=== PATIENT | female | born 1950 | race Caucasian/White ===

== ENCOUNTER 2023-10-22 14:41 | Emergency (ER) | payer MEDICARE, BC, SELFPAY ==
[2023-10-22 14:41] VITALS: BP 156/94; PULSE 71; RESP 18; TEMP 36.4; O2SAT 100; BMI 32.9
--- NOTE | 2023-10-22 15:37 | EX.ED.DYSGE1 ---
HPI History of Present Illness Chief Complaint: Weakness Narrative Narrative: 72-year-old female presenting with generalized weakness. She has had a cough and sputum production for about a week and a half. She has not seen anybody for this. She has not been tested for anything. She does not have a fever or chills. She complains of bodyaches. No chest pain or shortness of breath. No abdominal pain, nausea, vomiting. Patient states he is drinking plenty of fluids but not eating much because she is not hungry. Patient denies urinary complaints or vaginal complaints. Patient states she just feels weak. She is able to perform her ADLs. She is able to ambulate. She was able to drive to the emergency room today. She has not had any falls. PFSH PFSH Home Medications citalopram 20 mg tablet 20 mg PO DAILY 11/29/14 [History Last Taken Unknown] digoxin 250 mcg (0.25 mg) tablet 250 mcg PO DAILY 11/29/14 [History Last Taken 12/07/14 05:00] ergocalciferol (vitamin D2) 1,250 mcg (50,000 unit) capsule (Vitamin D2) 50,000 unit PO WE 11/29/14 [History Last Taken Unknown] ezetimibe 10 mg tablet 10 mg PO DAILY 11/29/14 [History Last Taken Unknown] fenofibrate nanocrystallized 145 mg tablet 145 mg PO DAILY 11/29/14 [History Last Taken Unknown] fluticasone propionate 50 mcg/actuation nasal spray,suspension 1 spray DAILY PRN PRN Nasal Congestion 11/29/14 [History Last Taken Unknown] lactobacillus combination no.4 3 billion cell capsule (Probiotic) 2 ea PO DAILY 11/29/14 [History Last Taken Unknown] omeprazole 20 mg capsule,delayed release 20 mg PO DAILY 11/29/14 [History Last Taken 12/07/14 05:00] hydrocodone-acetaminophen 5-325mg 5mg-325mg 1 tab PO Q4H PRN PRN Pain ##20 12/07/14 [Rx Last Taken Unknown] Allergy/AdvReac Type Severity Reaction Status Date / Time atorvastatin calcium AdvReac Other Verified 10/22/23 14:43 [From Lipitor] ibandronate sodium AdvReac Other Verified 10/22/23 14:43 [From Boniva] Penicillins AdvReac Other Verified 10/22/23 14:43 Social History Smoking Status: Never smoker ROS ROS ED Constitutional Constitutional ED: Denies chills, fever(s) or sweats Eyes Eyes: Denies blurry vision or change in vision ENT ENT ED: Denies ear pain or sore throat Cardiovascular Cardiovascular: Denies chest pain, palpitations or racing heartbeat Respiratory/Chest Respiratory/Chest: Reports cough and sputum; Denies dyspnea Gastrointestinal Gastrointestinal: Denies abdominal pain, constipation, diarrhea, nausea or vomiting Genitourinary Genitourinary ED: Denies dysuria, hematuria or urinary frequency Musculoskeletal Musculoskeletal: Denies arthralgias, myalgias or neck pain Integumentary Denies abscess, Abrasions or rash Neurologic Neurologic: Denies headache(s), paresthesias or weakness Psychiatric Psychiatric: Denies anxiety, depression, suicidal ideation or suicidal thoughts Endocrine Endocrinology: Denies polydipsia or polyuria EXAM Physical Exam Const Vital Signs: 10/22/23 14:41 10/22/23 15:59 10/22/23 17:50 Temperature 97.6 F L Temperature Source Temporal Pulse Rate 71 74 Respiratory Rate 18 18 Respiratory Effort Normal Respiratory Pattern Normal Blood Pressure 156/94 H Blood Pressure Mean 114 Pulse Ox 100 99 Oxygen Delivery Method Room Air Positive well nourished General Appearance ED: NAD; Negative for pallor HEENT Reports moist mucous membranes Eyes PERRL and EOMs intact bilaterally Neck no lymphadenopathy Chest Wall inspection of chest normal and palpation of chest normal Resp normal respiratory effort and clear to auscultation bilaterally Auscultation: Negative for rales, rhonchi or wheezes Cardio regular rate and regular rhythm GI normal to inspection, nondistended, normoactive bowel sounds Neuro oriented x3 and CN's II-XII intact bilaterally Sensorium / Orientation: alert Psych mental status grossly normal Skin no rashes or lesions noted General Skin Exam: Negative for jaundice or pallor MDM MDM MDM Narrative Medical decision making narrative: Patient presenting with generalized weakness. Patient does report a cough and some sputum production. She never tested for anything. It has been a week and a half so there is no plan tested for COVID, influenza, RSV. Differential includes pneumonia, dehydration, anemia, electrolyte abnormalities. Patient also on digoxin so I will assess the level. Patient denying chest pain or shortness of breath. Chest x-ray to rule out pneumonia. CBC to assess white blood cell count, hemoglobin, platelets. BMP to assess renal function, electrolytes. Urinalysis to assess for UTI. UA negative. CBC shows normal blood cell count of 7.8. Hemoglobin 14.2. Platelets 277. Renal function electrolytes within normal limits. Chest x-ray my interpretation is no acute process. The radiologist interprets this and agrees. Digoxin level is actually low today. It is 0.09. I did discuss with her this level and she states she is no longer taking digoxin. At this point I feel she is stable for discharge home. Return precautions were discussed. Impression: 1. cough 2. Generalized weakness Lab Data Attestation: I reviewed the patient's lab results. Labs: Laboratory Results - last 24 hr 10/22/23 10/22/23 15:20 16:03 WBC 7.8 RBC 4.85 Hgb 14.2 Hct 43.3 MCV 89.3 MCH 29.3 MCHC 32.8 RDW Std Deviation 40.2 RDW Coeff of [place] 12.2 Plt Count 277 MPV 10.5 Immature Gran % (Auto) 0.300 Neut % (Auto) 43.7 L Lymph % (Auto) 47.6 H [place] % (Auto) 6.3 Eos % (Auto) 1.5 Baso % (Auto) 0.6 Absolute Neuts (auto) 3.4 Absolute Lymphs (auto) 3.71 Nucleated RBC % 0 Sodium 141 Potassium 3.8 Chloride 109 H Carbon Dioxide 27.0 Anion Gap 5 BUN 13 Creatinine 0.87 Estim Creat Clear Calc 61.89 Est GFR (MDRD) Af Amer 83 Est GFR (MDRD) Non-Af 68 BUN/Creatinine Ratio 15.0 Glucose 96 Calcium 9.6 Urine Color Yellow Urine Clarity Clear Urine pH 7.0 Ur Specific [place] 1.010 Urine Protein 15 H Urine Glucose (UA) Normal Urine Ketones 5 H Urine Occult Blood 10 H Urine Nitrite Negative Urine Bilirubin Negative Urine Urobilinogen Normal Ur Leukocyte Esterase 500 H Urine RBC 0 SEEN Urine WBC 0-5 SEEN Ur Squamous Epith Cells 0-5 SEEN Urine Bacteria RARE Urine Mucus 0 SEEN Digoxin 0.09 L Radiography Diagnostic Testing: Clinical Impression(s) from Imaging Studies Chest X-Ray 10/22/23 16:32 IMPRESSION: No acute cardiopulmonary disease. Electronically Signed: Glenny Jacobson MD at 16:53 EST , Discharge Plan Triage Chief Complaint: Weakness ED Provider: Connor Alanis Dx/Rx/DC Orders Instructions: ED Weakness (Uncertain Cause) Prescriptions: No Action digoxin 250 MCG tablet 250 mcg PO DAILY Patient Comments: heart citalopram 20 MG tablet 20 mg PO DAILY Patient Comments: depression omeprazole 20 MG capsule 20 mg PO DAILY Patient Comments: acid reflux ergocalciferol (vitamin D2) [Vitamin D2] 50,000 UNIT capsule 50,000 unit PO WE Patient Comments: supplement ezetimibe 10 MG tablet 10 mg PO DAILY Patient Comments: lower cholesterol fenofibrate nanocrystallized 145 MG tablet 145 mg PO DAILY Patient Comments: cholesterol lactobacillus combination no.4 [Probiotic] 1 EACH capsule 2 ea PO DAILY fluticasone propionate 1 SPRAY spray,suspension 1 spray NASAL DAILY PRN PRN (Reason: Nasal Congestion) Patient Comments: allergies hydrocodone-acetaminophen 1 TABLET tablet 1 tab PO Q4H PRN PRN (Reason: Pain) Qty: 20 0RF Patient Comments: pain Primary Care Provider: Yusef Aviles Referrals: Yusef Aviles MD [Primary Care Provider] - Disposition Disposition: Home, Self Care Discharge Date/Time: 10/22/23 17:51 Capacity [employer] Manager Reflex Medical hold order details:: IF a medical hold is selected below, a suggested order for a MEDICAL HOLD will reflex upon signing the document. Next of kin: [place] law dictates a PRIORITY LIST for identifying legal decision-maker/legal next of kin in the following order (LNOK): 1st: The patient?s legal guardian, if any 2nd: The patient's spouse (if status is questionable, consult Risk Management) 3rd: The patient?s adult child(nevaeh) (majority, if multiple children) 4th: The patient?s parents 5th: The patient?s adult siblings (majority, if multiple children siblings)
[2023-10-22 15:49] LABS: Absolute Lymphocyte Count 3.71 X10^3/uL (0.83-4.51); Absolute Neutrophil Count 3.4 X10^3/uL (2.0-7.7); Basophil# 0.05 X10^3/uL; Basophil% 0.6 % (0-1); Eosinophil# 0.12 X10^3/uL; Eosinophils% 1.5 % (0-5); Hematocrit 43.3 % (37-47); Hemoglobin 14.2 g/dL (12.0-15.0); Lymphocyte # 3.71 X10^3/ul (0.83-4.51); Lymphocyte % 47.6 % (19-41); Mean Corp Hgb Conc 32.8 g/dL (32-36); Mean Corpuscular Hgb 29.3 pg (27.0-32.0); Mean Corpuscular Volume 89.3 fL (81-99); Mean Platelet Vol. 10.5 fl (6.2-12.0); Monocyte# 0.49 X10^3/uL; Monocyte% 6.3 % (0-10); NRBC Flagged by Analyzer 0 % (0-5); Neutrophil # 3.41 X10^3/uL (2.7-7.7); Neutrophil % 43.7 % (47-70); Platelet Count 277 K/mm3 (150-450); RBC Distribution Width CV 12.2 % (11.6-14.6); RBC Distribution Width SD 40.2 fl (35.1-43.9); Red Blood Count 4.85 M/mm3 (4.2-5.4); White Blood Count 7.8 K/mm3 (4.4-11.0)
[2023-10-22] MEDS: 0.9% Normal Saline (1000mL) 1,000 ML 1000 ML IV (16:01)
[2023-10-22 16:07] LABS: Anion Gap 5 (5-15); BUN 13 mg/dL (7-18); Calcium,Total 9.6 mg/dL (8.5-10.1); Chloride 109 mmol/L (98-107); Creatinine, Serum 0.87 mg/dL (0.55-1.02); EST Glomerular Filtration Rate 68 mL/min (>60); Est Glom Filt Rate - Afr Amer 83 mL/min (>60); Estimated Creatinine Clearance 61.89 ml/min; Glucose 96 mg/dL (74-106); Potassium 3.8 mmol/L (3.5-5.1); Sodium Level 141 mmol/L (136-145)
[2023-10-22 16:13] LABS: Mucous, Urine 0 SEEN /hpf (<or=2+); Red Blood Cells-Urine 0 SEEN /hpf (0-5)
--- OUTSIDE RECORDS SUMMARY | 2023-10-22 16:15 | XMS RPT_ITS | CCD ---
Author Name Unknown Address [address] [place] [address] Organization [facility] Care Team Providers Care Sales And Service Associate Name Role Phone Unavailable Primary Care Provider UnavailBobby Henning Primary Care Provider Bobby Keyes Primary Care Provider Bobby Keyes MD Primary Care Provid er PROVIDER, UNKNOWN Referring Unavailable Silvestre Webster Attending Unavailable Kaylee Rahman Primary Care Unavailable Bobby Keyes MD Primary Care Provider BOBBY KEYES Referring Unavailable BOBBY KEYES Attending Unavailable BOBBY KEYES Primary Care Unavailable Allergies Allergy Classification Reported Allergen(s) Allergy Type Date of Onset Reaction(s) Facility (6 sources) atorvastatin Drug Allergy 5 Other (See Comments) [place], [place] (6 sources) Ibandronate Drug Allergy 5 Other (See Comments) [place] (6 sources) Penicillins Propensity to adverse reactions to drug 5 Other (See Comments) [place] Medications Current Medications Medication Drug Class(es) Dates Sig (Normalized) Sig (Original) anastrozole 1 mg oral tablet (6 sources) Aromatase Inhibitor Start: 02-21-2020 take 1 tablet by mouth once daily anastrozole (ARIMIDEX) 1 MG tablet TAKE 1 TABLET BY MOUTH ONCE DAILY 0 02/21/2020 Active cetirizine hydrochloride 10 mg oral tablet (6 sources) Histamine-1 Receptor Antagonist Start: 12-14-2019 take 1 tablet by mouth once daily as needed cetirizine (ZYRTEC) 10 MG tablet Take 10 mg by mouth daily as needed 0 12/14/2019 Active citalopram 20 mg oral tablet (6 sources) Serotonin Reuptake Inhibitor Start: 12-14-2019 take 1 tablet by mouth once daily citalopram (CELEXA) 20 MG tablet TAKE 1 & 1 2 (ONE & ONE HALF) TABLETS BY MOUTH ONCE DAILY FOR 90 DAYS 0 12/14/2019 Active ergocalciferol 1.25 mg oral capsule (6 sources) Provitamin D2 Compound Start: 12-14-2019 take 1 capsule by mouth two times weekly vitamin D (ERGOCALCIFEROL) 1.25 MG (68528 UT) CAPS capsule TAKE 1 CAPSULE BY MOUTH TWICE A WEEK 0 12/14/2019 Active fluticasone propionate 0.05 mg/actuat metered dose nasal spray (6 sources) Corticosteroid Start: 12-14-2019 take 1 spray(s) nasal route once daily as needed fluticasone (FLONASE) 50 MCG/ACT nasal spray USE 1 SPRAY(S) IN EACH NOSTRIL ONCE DAILY NEEDED FOR 90 DAYS 0 12/14/2019 Active ibuprofen 200 mg oral tablet (3 sources) Nonsteroidal Anti-inflammatory Drug take 2 tablets by mouth every eight hours as needed for pain ibuprofen (ADVIL;MOTRIN) 200 MG tablet Take 400 mg by mouth every 8 hours as needed for Pain 0 Active krill oil (3 sources) take 1 capsule by mouth once daily KRILL OIL OMEGA-3 PO Take 1 capsule by mouth daily 0 Active pantoprazole 20 mg delayed release oral tablet (6 sources) Proton Pump Inhibitor Start: 02-17-2020 take 1 tablet by mouth once daily pantoprazole (PROTONIX) 20 MG tablet TAKE 1 TABLET BY MOUTH ONCE DAILY FOR 30 DAYS 0 02/17/2020 Active vitamin b12 1 mg oral tablet (6 sources) Vitamin B12 take 1 tablet by mouth once daily vitamin B-12 (CYANOCOBALAMIN) 1000 MCG tablet Take 1 tablet by mouth daily 0 Active vitamin b6 100 mg oral tablet (6 sources) take 1 tablet by mouth once daily vitamin B-6 (PYRIDOXINE) 100 MG tablet Take 100 mg by mouth daily 0 Active Problems Problem Classification Problem Date Documented Date Episodic/Chronic Allergic reactions (4 sources) Allergy status to penicillin; Translations: [Allergy status to other drugs, medicaments and biological substances status] Onset: 05-12-2022 Episodic Anxiety disorders (2 sources) Anxiety disorder, unspecified; Translations: [Anxiety disorder, unspecified] Onset: 05-12-2022 Chronic Cancer of breast (2 sources) Personal history of malignant neoplasm of breast; Translations: [Personal history of malignant neoplasm of breast] Onset: 05-12-2022 Episodic Disorders of lipid metabolism (2 sources) Hyperlipidemia, unspecified; Translations: [Hyperlipidemia, unspecified] Onset: 05-12-2022 Chronic E Codes: Natural/environment (2 sources) Other and unspecified overexertion or strenuous movements or postures, initial encounter; Translations: [Other and unspecified ovrexrtn or strnous move/pstr, init] Onset: 05-12-2022 Episodic Osteoporosis (7 sources) Age-related osteoporosis without current pathological fracture; Translations: [Senile osteoporosis] Onset: 05-12-2022 Chronic Other aftercare (2 sources) Other mcfp (current) drug therapy; Translations: [Other nurse supervisor (current) drug therapy] Onset: 05-12-2022 Episodic Other connective tissue disease (1 source) Disorder of soft tissue; Translations: [Other specified soft tissue disorders] 04-22-2023 Episodic Other endocrine disorders (8 sources) Hyperparathyroidism; Translations: [Hyperparathyroidism, unspecified] Onset: 04-23-2020 04-23-2020 Chronic Other lower respiratory disease (2 sources) Pleurodynia; Translations: [Pleurodynia] Onset: 05-12-2022 Episodic Residual codes; unclassified (2 sources) Sleep apnea, unspecified; Translations: [Sleep apnea, unspecified] Onset: 05-12-2022 Chronic Residual codes; unclassified (1 source) Postmenopausal state; Translations: [Postmenopausal] Episodic Sprains and strains (3 sources) Sprain of right foot; Translations: [Unspecified sprain of right foot, initial encounter] Onset: 05-12-2022 Episodic Superficial injury; contusion (3 sources) Contusion of rib; Translations: [Contusion of right front wall of thorax, initial encounter] Onset: 05-12-2022 Episodic Results Test Name Value Interpretation Reference Range Facil ity Vital Signs Date Time Vital Sign Value Performing Clinician Faci lity 05-12-2022 10:10-0400 Body temperature 98.4 [degF] Silvestre Webster MD Work Phone: [facility] 05-12-2022 10:10-0400 Diastolic blood pressure 98 mm[Hg] Silvestre Webster MD Work Phone: [facility] 05-12-2022 10:10-0400 Heart rate 64 /min Silvestre Webster MD Work Phone: [facility] 05-12-2022 10:10-0400 Respiratory rate 18 /min Silvestre Webster MD Work Phone: [facility] 05-12-2022 10:10-0400 SaO2% (BldA) [Mass fraction] 99 % Silvestre Webster MD Work Phone: [facility] 05-12-2022 10:10-0400 Systolic blood pressure 154 mm[Hg] Silvestre Webster MD Work Phone: [facility] 04-20-2020 10:36-0400 BMI (Body Mass Index) 31.18 kg/m2 [employer] [facility], [place] 04-20-2020 10:36-0400 Body Temperature 98.49 [degF] [facility] [employer] [facility] [place], [place] 04-20-2020 10:36-0400 Body weight 79.83 kg [place] [employer] [facility], [place] 04-20-2020 10:36-0400 BP Diastolic 67 mm[Hg] [facility] [employer] [facility] [place], [place] 04-20-2020 10:36-0400 BP Systolic 122 mm[Hg] [facility] [employer] [facility] [place], [place] 04-20-2020 10:36-0400 Height 160 cm [place] [employer] [facility], [place] 04-20-2020 10:36-0400 Pulse (Heart Rate) 59 /min [place] [employer] [facility] [place], [place] 04-20-2020 10:36-0400 Pulse Oximetry 96 % [place] [employer] [facility], [place] 04-20-2020 10:36-0400 Respiratory Rate 18 /min [place] [facility] [place] Encounters Encounter Date Encounter Type Care Provider Facility Start: 04-22-2023 Transcribe Orders Bobby gibbs MD Work Phone: [facility] Central Scheduling Procedures Date Procedure Procedure Detail Performing Clinician Start: 06-28-2023 Dxa bone density eugenie dy 1/> sites axial skel Bobby Keyes MD Work Phone: Start: 05-12-2022 Radex ribs uni w/posteroant ch minimum 3 views Silvestre Webster MD Work Phone: Start: 04-20-2020 COVID-19 Herminia Loo Work Phone: Start: 04-20-2020 Basic metabolic pane l calcium total Dorie L Rouse Work Phone: Start: 04-20-2020 Blood count hemoglobin Dorie L Rouse Work Phone: Start: 04-20-2020 Ecg routine ecg w/le ast 12 lds w/i&r Doriemelanie Rouse Work Phone: Start: 03-13-2020 Dxa bone density eugenie dy 1/> sites axial litzy Herminia Schrader Work Phone: Start: 03-13-2020 Us soft tissue head & neck real time imge docm Herminia Schrader Work Phone: Start: 03-09-2020 Parathyroid planar i maging w/wo subtraction Herminia Schrader Work Phone: Start: 01-19-2020 Us soft tissue head & neck real time imge docm Kaylee Rahman Other Phone: Plan of Treatment Date Care Activity Detail Author Start: 02-13-2027 Lipid panel Lipids [facility] Start: 04-01-2024 Screening for osteoporosis Bone Density Scan [facility] Start: 06-05-2023 Influenza vaccination Influenza Vacc ine (#1) [facility] Start: 06-05-2022 Influenza vaccination Flu vaccine (# 1) [facility] Start: 07-09-2021 COVID-19 Vaccine (3 - Booster for Pfizer series) COVID-19 Vaccine (3 - Booster for Pfizer series) [facility] Start: 04-03-2021 COVID-19 Vaccine (3 - Booster for Pfizer series) COVID-19 Vaccine (3 - Booster for Pfizer series) [facility] Start: 04-03-2021 COVID-19 Vaccine (3 - Pfizer series) COVID-19 Vaccine (3 - Pfizer series) [facility] Start: 06-05-2020 Influenza vaccination M [place], [place] Start: 04-23-2020 Hospital Encounter 04/23/2020 Hospital Encounter General Surgery Herminia Schrader MD [address] [place] [address] [phone] [facility] Start: 03-19-2020 End: 03-19-2020 Appointment 03/19/2020 Appointment Radiology [facility] [address] [facility] [place] Start: 03-13-2020 End: 03-13-2020 Appointment [facility] [place] Start: 03-05-2020 Annual Wellness Visi t (AWV) Annual Wellness Visit (AWV) [place] Start: 02-15-2020 End: 02-15-2020 Office Visit 02/15/2020 Office Visit General Surgery Herminia Schrader MD [address] [place] [address] [phone] Avril Loo Start: 2017 Pneumococcal 65+ yea rs Vaccine (1 of 1 - PPSV23) Pneumococcal 65+ years Vaccine (1 of 1 - PPSV23) [place] Start: 06-29-2016 Screening for malign ant neoplasm of colon [facility] Start: 04-20-2014 Shingles vaccine (2 of 3) Bearden gles vaccine (2 of 3) [facility] Start: 04-26-2012 Screening for malign ant neoplasm of colon Fecal-DNA (Cologuard): Average risk [facility] Start: 12-07-2007 DEXA (modify frequen cy per FRAX score) DEXA (modify frequency per FRAX score) [place] Start: 12-07-2007 Screening for osteoporosis DEXA (modify frequency per FRAX score) [place] Start: 2002 Breast cancer screen Breast cancer s creen [place] Start: 2002 Colon cancer screen colonoscopy Colon cancer screen colonoscopy [place] Start: 2002 Screening for malign ant neoplasm of colon Colon cancer screen colonoscopy [place] Start: 2002 Shingles Vaccine (1 of 2) Bearden gles Vaccine (1 of 2) [place] Start: 2002 Zoster Vaccines (1 of 2) Zoster Vacc lili (1 of 2) [facility] Start: 1997 Screening for malign ant neoplasm of colon [facility] Start: 1992 Diabetes screen Diabetes screen [place], [place] Start: 1992 Lipid panel Lipid screen [place], [place] Start: 1992 Lipid screen Lipid screen [place] Start: 1992 Screening for malign ant neoplasm of breast Mammogram [facility] Start: 12-07-1971 DTaP/Tdap/Td vaccine (1 - Tdap) DTaP/Tdap/Td vaccine (1 - Tdap) [facility] Start: 12-07-1971 DTaP/Tdap/Td Vaccine s (1 - Tdap) DTaP/Tdap/Td Vaccines (1 - Tdap) [facility] Start: 1970 Diabetes mellitus screening Diabetes Screening [facility] Start: 1970 Hepatitis C screening [facility] Start: 1968 COVID-19 Vaccine (1) COVID-19 Vaccin e (1) [facility] Work Phone: Start: 1964 Depression Screen Depression Screen [facility] Start: 1964 Depression Screening Depression Scre ening [facility] Start: 1952 Annual Wellness Visi t (AWV) Annual Wellness Visit (AWV) [facility] Start: 1952 Hepatitis C screen Hepatitis C scree [place] Start: 1952 Hepatitis C screening Hepatitis C sc reen [place] Start: 1952 Lipid panel Lipid Panel [facility] Start: 1952 Medicare Annual Well ness (AWV) Medicare Annual Wellness (AWV) [facility] Start: 1952 Screening for malign ant neoplasm of colon [facility] End: 03-19-2020 CT CHEST W WO CONTRAST CT CHEST W WO CONTRAST Imaging Routine Once for 1 Occurrences starting 03/19/2020 until 03/19/2020 [place] Immunizations Immunization Date Immunization Notes Care Provider Fa cility 07-05-2022 influenza virus vacc ine, unspecified formulation Bobby Keyes MD Work Phone: [facility] Payers Date Payer Category Payer Medicare MEDICARE MEDICAR E PART A AND B xxxxxxxxxxx 2017-Present [phone] [place] [address] xxxxxxxxxxx [id number] 2017 Medicare MEDICARE MEDICAR E PART A AND B [id number] 2017-Present [phone] [place] [address] [id number] 2017 Medicare [id number] 2017 Medicare 2017 Unknown [employer] AN[employer]I C[employer] SUPP xxxxxxxxxxxx 2017-Present [address] [place] [address] xxxxxxxxxxxx [id number] 2017 Unknown [employer] SUPP [id number] 2017-Present [address] [place] [address] [id number] 2017 Unknown [id number] 2017 Unknown 1950 Unknown [id number] Social History Date Type Detail Facility Tobacco smoking stat [facility] Start: 1950 Sex Assigned At Not on file [facility] [place] Start: 03-05-2020 End: 05-09-2020 Tobacco smoking status NHIS Never smoker [employer] [facility] Start: 03-05-2020 End: 09-23-2022 Alcohol intake Ex-drinker (finding) [facility] [employer] Exposure to SARS-CoV -2 (event) Unable to assess [facility] Bowling Start: 03-05-2020 End: 04-20-2020 Tobacco use and exposure Never used [facility] Start: 05-02-2022 End: 04-24-2023 Exposure to SARS-CoV-2 (event) Not sure [employer] [facility] Start: 09-23-2022 History of Social function [facility] Start: 09-23-2022 Tobacco use panel [facility] Start: 03-26-2023 Gender identity Identifies as female gender (finding) [facility] Discharge instructions 05-12-2022 Discharge InstructionsAttachments Note Date & Type Note Facility 05-12-2022 Hospital Discharg e instructions Silvestre Webster MD - 05/12/2022 11:41 AM EDT Use boot for comfort when ambulating. I would recommend that each day you come out of the boot and do gentle range of motion several times a day. Ice your foot several times a day. Gradually work yourself out of the boot. Follow-up with your doctor in 1 week to make sure that your foot is healing properly. I believe you have a foot sprain. You also have rib contusion that can take 3 weeks to heal. Motrin Tylenol for pain. The following attachments cannot be sent through Care Everywhere.Foot Sprain (Gambian)Rib Contusion (Gambian)documented in this encounter [facility] Work Phone: Progress note 06-28-2021 Note Date & Type Note Facility 06-28-2021 Note HNO ID: [id number] Author: Mary Cueva APRN.[employer] Service: ? Author Type: Nurse Practitioner Type: Progress Notes Filed: 06/28/2021 1:42 PM Note Text: Chief Complaint Patient presents with: Established Patient HPI: Lulu Yi is a 70 year old female who presents here today for follow breast cancer. Per Dr. Henson's previous note: H/o pt. was found to have a CONY non-calcified pulmonary nodule ?? CT scan of the chest dated 09/25/2014 revealed that within the anterior upper lobe there was a nodule measuring 1 cm in maximum diameter. Previously on CT from October 2013, it measured 8 mm. There were other stable left pulmonary nodules. There was a medial right lower lobe nodule measuring about 3.2 mm. This was felt to be stable due to slice selection. There was no mediastinal adenopathy. There was no axillary adenopathy. ?? The patient therefore underwent a PET scan to further evaluate the nodule. That study done on 10/25/2014 revealed at the 1 cm left upper lobe nodule showed mild activity with an SUV of 1.2. There was an incidental finding of a 1.6 cm focus of intense activity (SUV 11.3) involving the deep lateral portion of the right breast, with an ill-defined additional regional activity extending medially (SUV 8). There was mild increased activity (SUV 2.9) noted in the C7 vertebral body. The concurrent CT imaging showed multiple small lucent areas within the vertebral body. There was a 1 cm sclerotic focus noted in the intertrochanteric turgor region on the right without significant corresponding activity on the PET images. ?? The patient was referred to Dr. Saenz who performed a right core biopsy on 11/03/2014. The specimen was nondiagnostic containing a few detached fragments of atypical ductal epithelium mixed with blood clots. There were also fragments of benign breast tissue with focal chronic inflammation and foreign body giant cell reaction. ?? The patient underwent a repeat stereotactic guided needle core biopsy on 09/16/2015. The specimen from the procedure revealed tissue consistent with invasive ductal carcinoma, nuclear grade 2. DCIS, nuclear grade 2-3 was observed as well. Immunostains revealed the invasive disease to be ER positive (greater than 95%, strong). CA was 5%, moderate. HER-2 was quantified at 1-2+. FISH testing revealed the sample to be equivocal. ?? The patient's most recent mammogram had been in February of 2014. Apparently there were no abnormalities appreciated on that study. ?? Underwent right-sided mastectomy with sentinel lymph node biopsy procedure along with left-sided simple prophylactic mastectomy on 12/07/14. ?? Final pathology demonstrated a single focus of invasive carcinoma in the right breast measuring 3.8 cm. The grade was 3. Margins were negative. Lymphovascular invasion was not identified. Four of four SLNs were negative. ?? ? Previous therapy: 1) TC x4. No delays or dose reductions. Completed 03/15/2015. ? Current therapy:Arimidex Began 04/2015. ? No new concerns today. ?? Appetite: It's good. I gained weight. ? Energy level: If I get up and get moving I'm good. If I sit down I don't want to do anything. Denies fevers or recent illness. Resp:denies cough or sob Cardiac:denies chest pain/palpitations GI:denies abd pain, n/v, moving bowels regularly?h/o IBS :denies dysuria/hematuria Extrem:denies pain Endo:+hot flashes? They are ok. A couple times per week. Neuro:denies symptoms of neuropathy Skin:denies rashes/lesions Heme:denies bleeding The ROS is otherwise negative. Past medical history, appointments, medications, allergies reviewed. No changes. EXAM: BP (P) 145/86 Temp (P) 36.9 ?C (98.5 ?F) (Temporal) Ht (P) 163 cm (5' 4.17 ) Wt (P) 87.1 kg (192 lb) BMI (P) 32.78 kg/m? APPEARANCE Well appearing, alert, in no acute distress, well-hydrated, well nourished. HEART RRR with normal S1 and S2, no murmurs LUNG clear to auscultation BREAST FEMALE b/l mastectomy scars, no nodule LYMPH NODES No cervical lymphadenopathy, No supraclavicular lymphadenopathy and No axillary lymphadenopathy. ABDOMEN bowel sounds normoactive, soft, non-tender, non-distended, without organomegaly or palpable masses EXTREMITIES No edema NEURO Awake, alert and oriented x 3, Normal gait and No involuntary motions. SKIN Skin color, texture, turgor normal, no suspicious rashes or lesions ASSESSMENT/PLAN: 1. Malignant neoplasm of upper-outer quadrant of right breast in female, estrogen receptor positive (HCC) - ICD9: 174.4, V86.0, ICD10: C50.411, Z17.0 pT2 (3.8 cm; grade 3; no ALI invasion) ER/CA positive HER2 negative (1-2 + IHC; borderline/equivocal on FISH) invasive ductal carcinoma of the right breast.? - ?No concerning findings on exam. - Tolerating arimidex well. Pt. willing to continue for 10 years. - ?Continue arimid (more content not included)... [facility] Progress note 12-21-2020 Note Date & Type Note Facility 12-21-2020 Note HNO ID: [id number] Author: Mary Cueva Service: ? Author Type: Nurse Practitioner Type: Progress Notes Filed: 12/21/2020 1:20 PM Note Text: Chief Complaint Patient presents with: Established Patient HPI: Lulu Yi is a 70 year old female who presents here today for follow up breast cancer. Per Dr. Henson's previous note: H/o pt. was found to have a CONY non-calcified pulmonary nodule ?? CT scan of the chest dated 09/25/2014 revealed that within the anterior upper lobe there was a nodule measuring 1 cm in maximum diameter. Previously on CT from October 2013, it measured 8 mm. There were other stable left pulmonary nodules. There was a medial right lower lobe nodule measuring about 3.2 mm. This was felt to be stable due to slice selection. There was no mediastinal adenopathy. There was no axillary adenopathy. ?? The patient therefore underwent a PET scan to further evaluate the nodule. That study done on 10/25/2014 revealed at the 1 cm left upper lobe nodule showed mild activity with an SUV of 1.2. There was an incidental finding of a 1.6 cm focus of intense activity (SUV 11.3) involving the deep lateral portion of the right breast, with an ill-defined additional regional activity extending medially (SUV 8). There was mild increased activity (SUV 2.9) noted in the C7 vertebral body. The concurrent CT imaging showed multiple small lucent areas within the vertebral body. There was a 1 cm sclerotic focus noted in the intertrochanteric turgor region on the right without significant corresponding activity on the PET images. ?? The patient was referred to Dr. Saenz who performed a right core biopsy on 11/03/2014. The specimen was nondiagnostic containing a few detached fragments of atypical ductal epithelium mixed with blood clots. There were also fragments of benign breast tissue with focal chronic inflammation and foreign body giant cell reaction. ?? The patient underwent a repeat stereotactic guided needle core biopsy on 09/16/2015. The specimen from the procedure revealed tissue consistent with invasive ductal carcinoma, nuclear grade 2. DCIS, nuclear grade 2-3 was observed as well. Immunostains revealed the invasive disease to be ER positive (greater than 95%, strong). CA was 5%, moderate. HER-2 was quantified at 1-2+. FISH testing revealed the sample to be equivocal. ?? The patient's most recent mammogram had been in February of 2014. Apparently there were no abnormalities appreciated on that study. ?? Underwent right-sided mastectomy with sentinel lymph node biopsy procedure along with left-sided simple prophylactic mastectomy on 12/07/14. ?? Final pathology demonstrated a single focus of invasive carcinoma in the right breast measuring 3.8 cm. The grade was 3. Margins were negative. Lymphovascular invasion was not identified. Four of four SLNs were negative. ?? Previous therapy: 1) TC x4. No delays or dose reductions. Completed 03/15/2015. ? Current therapy:Arimidex Began 04/2015. ? No new concerns today. ?? Appetite: I don't think I eat a lot but my weight. I have a good appetite. ? Energy level: I think pretty good. Denies fevers or recent illness. Resp:denies cough or sob Cardiac:denies chest pain/palpitations GI:denies abd pain, n/v, moving bowels regularly?h/o IBS :denies dysuria/hematuria Extrem:denies pain elsewhere Endo:+hot flashes? I still have some. I would say they are more on the mild side. They do not wake pt. at night. Neuro:denies symptoms of neuropathy Skin:denies rashes/lesions Heme:denies bleeding The ROS is otherwise negative. Past medical history, appointments, medications, allergies reviewed. No changes. EXAM: BP 143/82 Pulse (!) 55 Temp 36.9 ?C (98.5 ?F) Wt 81.2 kg (179 lb) BMI 31.72 kg/m? APPEARANCE Well appearing, alert, in no acute distress, well-hydrated, well nourished. HEART RRR with normal S1 and S2, no murmurs LUNG clear to auscultation BREAST FEMALE b/l mastectomy scars, no mass/nodule LYMPH NODES No cervical lymphadenopathy, No supraclavicular lymphadenopathy and No axillary lymphadenopathy. ABDOMEN bowel sounds normoactive, soft, non-tender, non-distended, without organomegaly or palpable masses EXTREMITIES No edema NEURO Awake, alert and oriented x 3, Normal gait and No involuntary motions. SKIN Skin color, texture, turgor normal, no suspicious rashes or lesions ASSESSMENT/PLAN: 1. Malignant neoplasm of upper-outer quadrant of right breast in female, estrogen receptor positive (HCC) - ICD9: 174.4, V86.0, ICD10: C50.411, Z17.0 pT2 (3.8 cm; grade 3; no ALI invasion) ER/CA positive HER2 negative (1-2 + IHC; borderline/equivocal on FISH) invasive ductal carcinoma of the right breast.? - ?No concerning findings on exam. - Tolerating arimidex well. Pt. willing to continue for 10 years. - ?Continue arimi (more content not included)... [facility] Evaluation note Note Date & Type Note Facility documented in this encounter [facility] Work Phone: Evaluation note Note Date & Type Note Facility documented in this encounter [facility] Evaluation note Note Date & Type Note Facility documented in this encounter [facility] Evaluation note Note Date & Type Note Facility documented in this encounter [facility] Advance Directives Documents on File Type Date Recorded Patient Intake Clerk Expl anation Advance Directives and Living Will Power of Engineer Rf Deployment Documents on File Type Date Recorded Patient Intake Clerk Expl anation Advance Directives and Living Will Power of Engineer Rf Deployment Documents on File Type Date Recorded Patient Intake Clerk Expl anation ACP-Advance Directive ACP-Power of Engineer Rf Deployment Latest Code Status on File Code Status Date Activated Date Inactivated Comments Full Code 04/23/2020 3:43 PM 04/24/2020 12:55 PM Full Code 04/23/2020 9:56 AM 04/23/2020 3:40 PM Reason for Referral Status Reason Specialty Diagnoses / Procedures Referre d By Contact Referred To Contact Closed Radiology Diagnoses Hyperparathyroidism (HCC) Postmenopausal Procedures DEXA Bone Density Axial Skeleton Herminia Schrader MD [address] [place] [id number] Status Reason Specialty Diagnoses / Procedures Referre d By Contact Referred To Contact Closed Radiology Diagnoses Hyperparathyroidism (HCC) Procedures US Head Neck Soft Tissue Thyroid Herminia Schrader MD [address] [place] [address] Assessments Diagnosis Hyperparathyroidism (HCC) Hyperparathyroidism, unspecified Postmenopausal Asymptomatic postmenopausal status (age-related) (natural) Diagnosis Hyperparathyroidism (HCC) Hyperparathyroidism, unspecified Summary Purpose Family History No Family History Records FoundNo Family History Records FoundNo Family History Records FoundNo Family History Records Found Hospital Course Note Discharge Summary Lulu Prescott ier : 1950 ADMIT DATE: 04/23/2020 DISCHARGE DATE: 04/24/2020 PRIMARY CARE PHYSICIAN: BOBBY KEYES MD VISIT STATUS: OPB CODE STATUS: Full Code DISCHARGE DIAGNOSES: Active Problems: Hyperparathyroidism (HCC) Resolved Problems: * No resolved hospital problems. * HOSPITAL COURSE: Patient presented on 04/23/2020 for a R. Inferior parathyroidectomy. The patient tolerated the procedure very well, and was transferred from OR -> PACU -> floor w/o concern. The patient confirmed adequate oral intake, and fluids were discontinued in the am on POD #1 (04/24). The patient had NAEO, and was able to advance her diet well. The total calcium level was 9.1 and ionized calcium was 4.6 on POD #1 (04/24), with a post-op PTH level of 12.1. At the time of discharge, the patient's vital signs were within normal limits. Patient was voiding spontaneously, tolerating a diet, ambulating independently, and having bowel function. Patient's pain was controlle (more content not included)... Discharge Instructions * Instructions* Sarah Jackson RN - 04/20/2020 Follow all instructions given to you by Please bring your [facility] Surgical Information folder on the day of surgery. Please jennifer the last dose taken (date and time ) on your Daily Medications List provided in your After Visit Summary. Please bring a photo ID and insurance information TAKE ONLY the following medications the morning of your surgery CITALOPRAM, ANASTROZOLE, PANTOPRAZOLE, CETIRIZINE You may take Tylenol (Acetaminophen) if needed for pain. No Motrin, Ibuprofen, or Advil 24 hours prior to surgery, or longer if instructed by your surgeon. AFTER 04/21/2020 No Aleve or Naprosyn 3 days prior to surgery, or longer if instructed by your surgeon.NOW If you are on BLOOD THINNERS or ASPIRIN, N/A Additional instructions SEE THE BROCHURE. PLEASE DRINK [address] LIQUID ON [address] TO HOSPITAL 2 HOURS PRIOR TO SURGERY You will receive a reminder call the day before surgery with your Same Day Surgery arrival time. If you have specific questions, please call your surgeon. * Attachments The following attachments cannot be sent through Care Everywhere. * Parathyroidectomy: Pre-op ([place]ian) * Parathyroidectomy: Post-op ([place]ian) documented in this encounter History of Present Illness * Sarah Jackson RN - 04/20/2020 10:30 AM EDT Limb alert... No BP, Labs, or IV in Right arm. Prior mastectomy documented in this encounter Additional Source Comments INFORMATION SOURCE (unrecogn ized section and content) DATE CREATED AUTHOR AUTHOR'S ORGANIZ ATION 11/04/2021 [facility] DATE CREATED AUTHOR AUTHOR'S ORGANIZ ATION 07/08/2022 [facility] DATE CREATED AUTHOR AUTHOR'S ORGANIZ ATION 04/02/2023 [facility] Reason for Visit (unrecogniz ed section and content) Care Teams (unrecognized sec tion and content) Sales And Service Associate Relationship Specialty Start Date End Date Bobby Keyes MD [address] [place] [phone] PCP - General 03/05/20 Sales And Service Associate Relationship Specialty Start Date End Date Bobby Keyes MD [address] [place] [phone] PCP - General 03/05/20 FOR RECORDS PERTAINING TO PATIENTS WHO ARE OR HAVE BEEN ENROLLED IN A CHEMICAL DEPENDENCY/SUBSTANCEABUSE PROGRAM, SOME INFORMATION MAY BE OMITTED. This clinical summary was aggregated from multiple sources. Caution should be exercised in using it in the provision of clinical care. This summary normalizes information from multiple sources, and as a consequence, information in this document may materially change the coding, format and clinical context of patient data. In addition, data may be omitted in some cases. CLINICAL DECISIONS SHOULD BE BASED ON THE PRIMARY CLINICAL RECORDS. [facility] provides no warranty or guarantee of the accuracy or completeness of information in this document.
[2023-10-22 16:21] LABS: Color, Urine Yellow (Yellow); Glucose, Dipstick Normal (Normal); Ketone-Dipstick 5 mg/dl (Negative); Leukocyte Esterase-Dipstick 500 /ul (Negative); Nitrite-Dipstick Negative (Negative); Occult Blood-Urine 10 /ul (Negative); Protein-Dipstick 15 mg/dl (Negative); Urine Bilirubin Dipstick Negative (Negative); Urine Clarity Clear (Clear); Urine Urobilinogen Normal (Normal)
--- NOTE | 2023-10-22 16:32 | RAD_ITS ---
STUDY: X-RAY CHEST REASON FOR EXAM: Female, 72 years old. cough TECHNIQUE: Single AP portable view of the chest. COMPARISON: None. FINDINGS: The lungs are clear and expanded. There is no demonstrated pleural abnormality. Normal size heart. Normal mediastinum and david. Normal visualized pulmonary arteries. Normal visualized aortic arch and descending thoracic aorta. Normal visualized thoracic spine. There is degenerative osteoarthritis of the bilateral shoulders. There is no demonstrated abnormality of the visualized soft tissue structures of the upper abdomen. RAD/Chest 1 View (Portable) IMPRESSION: No acute cardiopulmonary disease. Electronically Signed: Glenny Jacobson MD at 16:53 EST ,
[2023-10-22 16:34] LABS: Bacteria RARE /hpf (None Seen); Squamous Epithelial Cells - UA 0-5 SEEN /hpf (5-10); White Blood Cells 0-5 SEEN /hpf (0-5)
[2023-10-22 16:39] LABS: Digoxin Level 0.09 ng/mL (0.80-2.00)
[2023-10-22 17:50] VITALS: PULSE 74; RESP 18; O2SAT 99
== END 2023-10-22 17:51 | disposition home or self-care (01) ==
PROVIDERS: Emergency Provider Student in an Organized Health Care Education/Training Program; PCP Family Medicine; Visit Provider Student in an Organized Health Care Education/Training Program
DX: R05.9 Cough, unspecified (principal); R53.1 Weakness; Z79.899 Other long term (current) drug therapy
CPT/HCPCS: 71045; 80048; 80162; 81001; 85025; 96360; 96361; 99283; J7030; A4216